=== PATIENT | male | born 1965 | race Caucasian/White ===

== ENCOUNTER 2019-07-05 09:25 | Day surgery (SDC) | payer OTHER ==
[~2019-07-05] VITALS: Ht 170.2 cm; Wt 63.5 kg
[2019-07-05] MEDS ORDERED: fentaNYL 0.05 MG/ML VIAL ONE (12:15)
[2019-07-05] MEDS ORDERED: LIDOCAINE 2% 100 MG/5 ML UJET TP ONE (12:16)
[2019-07-05] MEDS ORDERED: fentaNYL 0.05 MG/ML VIAL IVP ONE (13:05)
== END 2019-07-05 13:13 | disposition home or self-care (01) ==
LOC: MDS 09:25 → MMU 10:05 → MDS 13:13
PROVIDERS: ATTEND Internal Medicine Gastroenterology
DX: Z12.11 Encounter for screening for malignant neoplasm of colon (principal); D12.5 Benign neoplasm of sigmoid colon; F17.210 Nicotine dependence, cigarettes, uncomplicated
CPT/HCPCS: 45385; J3010